=== PATIENT | male | born 1950 | race Asian ===

== ENCOUNTER 2019-03-13 21:30 | Emergency (ER) | payer OTHER ==
[~2019-03-13] VITALS: Ht 172.7 cm; Wt 84.8 kg
[2019-03-14 00:33] VITALS: BP 148/73; TEMP 98.2
== END 2019-03-14 00:33 | disposition home or self-care (01) ==
LOC: ED 21:30
PROC: 0HQFXZZ Repair Right Hand Skin, External Approach (ICD-10-PCS; principal; 2019-03-13)
DX: S61.210A Laceration without foreign body of right index finger without damage to nail, initial encounter (principal); W29.3XXA Contact with powered garden and outdoor hand tools and machinery, initial encounter; Y92.89 Other specified places as the place of occurrence of the external cause
CPT/HCPCS: 90471; 90715; 99283

== ENCOUNTER 2020-12-09 11:53 | Outpatient (CLI) | payer OTHER | END 2020-12-09 21:55 | disposition home or self-care (01) | LOC: INF 11:53 | PROVIDERS: ATTEND Internal Medicine Endocrinology, Diabetes & Metabolism | DX: Z23 Encounter for immunization (principal) | CPT/HCPCS: 96372 ==

== ENCOUNTER 2021-01-06 12:14 | Outpatient (CLI) | payer OTHER | END 2021-01-06 19:42 | disposition home or self-care (01) | LOC: INF 12:14 | PROVIDERS: ATTEND Internal Medicine Endocrinology, Diabetes & Metabolism | DX: Z23 Encounter for immunization (principal) | CPT/HCPCS: 96372 ==

== ENCOUNTER 2023-04-21 15:56 | Outpatient (CLI) | payer OTHER ==
[2023-04-21 16:14] LABS: PLATELET COUNT 203 K/uL (142-355)
[2023-04-21 16:27] LABS: POTASSIUM 3.6 mmol/L (3.6-5.2)
== END 2023-04-21 17:00 ==
LOC: LABW 15:56
PROVIDERS: ATTEND Nurse Practitioner Family
DX: B35.6 Tinea cruris (principal); B35.4 Tinea corporis
CPT/HCPCS: 36415; 80053; 85027